=== PATIENT | female | born 1990 | race African-American/Black ===

== ENCOUNTER 2024-07-23 23:06 | Emergency (ER) | payer BC, SELFPAY ==
[2024-07-23 23:21] VITALS: BMI 38.4
[2024-07-23 23:32] VITALS: BP 131/70
[2024-07-24 00:33] LABS: Urine Albumin Negative (Neg - Trace); Urine Bilirubin Negative (Negative); Urine Character Clear (Clear); Urine Color Yellow; Urine Glucose Trace (Negative); Urine Ketone Negative (Negative); Urine Leukocyte Negative (Negative); Urine Nitrite Negative (Negative); Urine Occult Blood Negative (Negative); Urine Urobilinogen Negative (Neg - 1+)
[2024-07-24 00:43] LABS: Glucose - Point of Care 101 mg/dl (70-99)
--- NOTE | 2024-07-24 03:17 | ED.GENMED ---
History of Present Illness
General
Chief Complaint: Medication Reaction
Time Seen by Provider: 07/23/24 23:53
History of Present Illness
History of Present Illness:
34yoF with a history of borderline personality disorder and psychosis 2 years ago presenting via EMS for medication side effects. Patient was recently admitted at inpatient psychiatry at [facility] in [place] 2 weeks ago. She
signed herself in due to situational depression. Patient states it was the 1 year anniversary of her friend's and she was having a hard time with it. Patient was diagnosed with bipolar during this hospitalization. She was initiated on
Depakote and Risperdal. She is currently voluntarily admitted at [facility]. Patient is here with multiple symptoms including a change in appetite, nausea, drowsiness, tenderness, and shakiness. The symptoms started shortly
after she was started on the new psychiatric medications. She believes her symptoms are a side effect of the medications and she is interested in stopping these medicines. Patient does not feel she needs inpatient psychiatric care at this time.
She denies any suicidal or homicidal ideations.
Phy Exam
General Physical Exam
General Presentation: well appearing and no apparent distress
General age: appears stated age
General Skin: warm and dry
General Habitus: normal
General Mental: alert
ENT Exam
ENT Exam: normocephalic
Pulmonary Exam
Pulmonary Exam: no respiratory distress
Estela Coma Scale
Eye Opening: Spontaneous
Verbal Response: Oriented
Motor Response: Obeys Commands
GCS Total Score: 15
Skin Exam
Skin Exam: normal color and warm/dry
Psychiatric Exam
Psychiatric Exam: normal mood/affect and other (Normal thought process. Cooperative. No signs of psychosis. No SI/HI.)
Course
Orders/Labs/Results
Orders:
Orders
07/24/24 00:26
Urinalysis Reflex To Culture Urgent
Date Specimen was Collected: 07/24/24
Time Specimen was Collected: 00:20
07/24/24 00:36
Bedside Glucose- Treatment ONCE
Abnormal Lab Results
07/24/24 07/24/24
00:26 00:41
Urine Glucose Trace A
(Negative)
POC Glucose 101 H mg/dl
(70-99)
Vital Signs
Initial and Last Documented VS:
Initial Vital Signs
Temp Pulse BP Pulse Ox
99 F 99 131/70 88
07/23/24 23:32 07/23/24 23:32 07/23/24 23:32 07/23/24 23:32
Last Documented Vital Signs
Temp Pulse BP Pulse Ox
99 F 99 131/70 99
07/23/24 23:32 07/23/24 23:32 07/23/24 23:32 07/23/24 23:46
MDM/Problems Addressed
Differential Diagnosis Includes:
34yoF here with multiple symptoms including nausea, change in appetite, shakiness, increased urination since being started on new psychiatric medications 2 weeks ago (Depakote and Risperdal). Currently at [facility] under a
voluntary admission. No SI/HI. VSS. Patient is well appearing in no distress.
Initial ED plan: Patient had outpatient lab work earlier this week which she was able to show me on her patient portal. CBC and CMP unremarkable. Do not feel repeat labs would be helpful. Will check UA given urinary frequency. Patient not interested
in crisis consult.
*Critical Care Note
Total Time (30-74mins, 75-104mins- exclusive of procedures): Not Applicable
Update Note
Update Note:
UA shows trace glucose but otherwise normal. Fingerstick glucose obtained which is 101. Patient initially put up for discharge back to [facility]. I received a call from VALERIA Ortiz, at [facility] stating that they will not accept her back into
their facility due to being 'too acute.' Patient cooperative throughout ED stay and not requiring a 1:1. No grounds for involuntary psychiatric admission and patient not interested in inpatient care currently. Crisis involved who agrees that she
does not meet criteria for inpatient psych. Will have patient stay in the ED overnight until her family member can pick her up in the morning. She does have a therapist and psychiatrist that she sees in [place] that she will follow up with.
ED Attending Note
-
Portions of this chart may have been created with voice recognition software.� Occasional wrong word or��sound alike� substitutions may have occurred due to the inherent limitations of voice recognition software.
Discharge Plan
Departure
Patient Disposition: Home (Routine Discharge)
Date of Disposition: 07/24/24
Time of Disposition: 01:03
Patient with high blood pressure during this ER visit?: No
Discharge Problem:
Medication adverse effect
Instructions: Risperidone, Valproic Acid and Derivatives
Prescriptions:
No Action
clonidine HCl 0.1 mg Tablet
0.1 mg PO TID
Rx Instructions:
anxiety,hbp hold if bp less than 90/60 or hr less than 60
chlorpheniramine maleate [Chlor-Trimeton] 4 mg Tablet
4 mg PO Q6H
melatonin 5 mg Tablet, Sublingual
5 mg SUBLINGUAL HS PRN (Reason: insomnia)
ondansetron HCl 4 mg Tablet
4 mg PO Q6H PRN (Reason: nausea)
hydroxyzine pamoate [Vistaril] 50 mg Capsule
50 mg PO QID
trazodone 100 mg Tablet
100 mg PO HS
diphenhydramine HCl [Benadryl] 25 mg Capsule
25 mg PO Q6H
Rx Instructions:
for allergies-not to be taken with vistaril
naproxen sodium 220 mg Tablet
440 mg PO BID PRN (Reason: pain)
divalproex [Depakote ER] 500 mg Tablet Extended Release 24 Hr
1,500 mg PO DAILY
docusate sodium [Colace] 100 mg Capsule
100 mg PO DAILY
dzqdvks-zdqnnhajsdoum-hwzebsbe 250-250-65 mg Tablet
2 tab PO Q6H PRN (Reason: migraine )
loratadine [Loradamed] 10 mg Tablet
10 mg PO DAILY
Flonase Sensimist 27.5 mcg/actuation [place],Suspension
1 spray INTRANASAL DAILY
Referrals:
UNKNOWN - PT DOES,NOT KNOW [Family Provider] -
Activity Restrictions/Additional Instructions:
Please follow-up with your psychiatrist. Return to the ER with any new or worsening symptoms.
Interventions
Interventions:
*Risk Screen - Suicide Last Done: 07/23/24 23:46
*General Assessment Last Done: 07/23/24 23:46
*Neglect/Abuse Screening Last Done: 07/23/24 23:46
ED- Fall Risk Assessment Last Done: 07/23/24 23:46
*ED COVID-19 Vaccine History Last Done: 07/23/24 23:46
*Nursing Disposition Last Done: 07/24/24 09:14
ED-Skin Assessment Last Done: 07/23/24 23:46
ED- Pulmonary Assessment Last Done: 07/23/24 23:46
ED-EENT Assessment Last Done: 07/24/24 09:14
Discharge Date and Time
Discharge Date/Time: 07/24/24 09:23
Print Language: [id number]
== END 2024-07-24 09:23 | disposition home or self-care (01) ==
LOC: EMR 23:06
PROVIDERS: Physician Assistant; EMERGENCY PHYSICIAN Student in an Organized Health Care Education/Training Program
DX: R11.0 Nausea (principal); T42.6X5A Adverse effect of other antiepileptic and sedative-hypnotic drugs, initial encounter; Y92.9 Unspecified place or not applicable; F60.3 Borderline personality disorder; F31.9 Bipolar disorder, unspecified
CPT/HCPCS: 99282; 81003; 82962